=== PATIENT | male | born 1985 | race Two or more races ===

== ENCOUNTER 2022-09-08 08:05 | Outpatient (CLI) | payer OTHER | END 2022-09-08 08:22 | disposition home or self-care (01) | LOC: SONOGRAMA 08:05 | PROVIDERS: ATTEND General Practice | DX: B17.10 Acute hepatitis C without hepatic coma (principal) ==

== ENCOUNTER 2022-11-13 08:41 | Outpatient (CLI) | payer OTHER | END 2022-11-13 09:06 | disposition home or self-care (01) | LOC: TOM 08:41 | PROVIDERS: ATTEND General Practice | DX: R19.04 Left lower quadrant abdominal swelling, mass and lump (principal) ==

== ENCOUNTER 2024-01-25 16:47 | Emergency (ER) | payer OTHER ==
[~2024-01-25] VITALS: Ht 188 cm; Wt 93.0 kg
[2024-01-25] MEDS ORDERED: FAMOtidine 10 MG/ML (4ML VIAL) IV ONE (17:30)
[2024-01-25] MEDS ORDERED: KETOROLAC TROMETHAMINE 60 MG VIAL IM ONE (17:30)
[2024-01-25 19:02] LABS: HEMATOCRIT 43.5 % (39.0-48.0); HEMOGLOBIN 14.9 g/dL (13-16.00); MEAN CELL VOLUME 81.5 fL (80.0-100.00); MEAN CORPUSCULAR HEMOGLOBIN 27.9 pg (27.00-32.0); MEAN CORPUSCULAR HGB CONC 34.2 g/dl (32.0-36.0); PLATELET COUNT 177 K/uL (150-450); RED BLOOD COUNT 5.34 M/uL (4.00-6.00)
[2024-01-25 19:26] LABS: ALBUMIN 4.6 gm/dL (3.4-5.0); BILIRUBIN TOTAL 0.85 mg/dL (0.3-1.2); CALCIUM 9.3 mg/dL (8.5-10.1); CREATININE SERUM 0.96 mg/dL (0.70-1.30); GFR 88.13; GLOBULINA 3.5 G/DL (2.4-3.5); POTASSIUM 4.05 mEq/L (3.5-5.1); TOTAL PROTEIN 8.1 gm/dL (6.4-8.2)
== END 2024-01-25 20:48 | disposition home or self-care (01) ==
LOC: ER 16:49
PROVIDERS: General Practice
DX: R07.89 Other chest pain (principal)

== ENCOUNTER 2025-03-13 09:37 | Outpatient (CLI) | payer OTHER | END 2025-03-13 09:47 | disposition home or self-care (01) | LOC: RAD 09:37 | PROVIDERS: ATTEND Orthopaedic Surgery | DX: M25.512 Pain in left shoulder (principal); M25.511 Pain in right shoulder ==